=== PATIENT | male | born 1955 | race Caucasian/White ===

== ENCOUNTER → 2016-09-13 | Outpatient (CLI) | payer OTHER ==
[2016-09-13 09:36] LABS: BASO % 0.6 %; BASO ABS # 0.03 K/uL (0-0.2); COMPLETE YES; EOS % 3.8 %; HEMATOCRIT 43.7 % (42-52); IG% 0.2 %; LYMPH % 47.9 %; LYMPH ABS # 2.42 K/uL (1.2-3.4); MEAN CELL VOLUME 88.3 fL (80-100); MEAN CORPUSCULAR HEMOGLOBIN 31.5 pg (25-34); MEAN CORPUSCULAR HGB CONC 35.7 g/dl (32-36); MEAN PLATELET VOLUME 9.9 fL (7.4-10.4); MONO % 8.1 %; NEUT % 39.4 %; PLATELET COUNT 148 K/uL (130-400); RED BLOOD COUNT 4.95 M/uL (4.7-6.1); WHITE BLOOD COUNT 5.05 K/uL (4.8-10.8)
[2016-09-13 10:05] LABS: ALT/SGPT 38 U/L (12-78); AST/SGOT 25 U/L (15-37); BLOOD UREA NITROGEN 18 mg/dl (7-18); BUN/CREATININE RATIO 18.2 (10-20); CARBON DIOXIDE 24 mmol/L (21-32); CHLORIDE 111 mmol/L (98-107); CHOLESTEROL 228 mg/dl (0-200); GLUCOSE 98 mg/dl (70-99); SODIUM 144 mmol/L (136-145); TRIGLYCERIDES 152 mg/dl (0-150); VERY LOW DENSITY LIPOPROT CALC 30 mg/dl
[2016-09-13 10:14] LABS: ALB/GLOB RATIO 1.1 (0.9-2); ALKALINE PHOSPHATASE 43 U/L (45-117); HDL CHOLESTEROL 38 mg/dl; LDL CHOLESTEROL CALCULATED 160 mg/dl
[2016-09-13 10:20] LABS: CALCIUM 8.9 mg/dl (8.5-10.1)
[2016-09-16 17:31] LABS: C-REACTIVE PROT HIGHSEN 3.3 MG/L; LIPOPROTEIN A TC 34604X <10 nmol/L (<75); TESTOSTERONE,TOTAL 816 ng/dL (250-1100)
== END | disposition home or self-care (01) ==
LOC: C.LAB 08:48
PROVIDERS: ATTEND Chiropractor
DX: E29.1 Testicular hypofunction (principal); R53.83 Other fatigue; R71.8 Other abnormality of red blood cells

== ENCOUNTER → 2017-04-25 | Outpatient (CLI) | payer OTHER | END | disposition home or self-care (01) | LOC: C.LAB 08:34 | PROVIDERS: ATTEND Chiropractor | DX: R53.83 Other fatigue (principal) ==